=== PATIENT | female | born 1960 | race Two or more races ===

== ENCOUNTER 2017-04-15 07:10 | Day surgery (SDC) | payer BC ==
[~2017-04-15 07:10] MED LIST: CLINDAMYCIN 600 MG/D5W (PMX) 50 ML IVPB; DEXAMETHASONE 4 MG/ML 1 ML INJ; METOCLOPRAMIDE 10 MG INJ; ONDANSETRON 4 MG INJ; PROPOFOL 200 MG INJ; SOD CHLORIDE 0.9% 1,000 ML IV
[2017-04-15] MEDS ORDERED: FENTAnyl 50 MCG/ML VIAL (09:17)
[2017-04-15] MEDS ORDERED: MIDAZOLAM 1 MG/ML 2 ML INJ (09:40)
[2017-04-15] MEDS ORDERED: SUCCINYLCHOLINE CHLORIDE 100 MG/5 ML SYG IV (09:43)
[2017-04-15] MEDS ORDERED: ROCURONIUM 50 MG INJ (09:44)
[2017-04-15] MEDS ORDERED: LIDOCAINE 100 MG SYRINGE (09:44)
[2017-04-15] MEDS ORDERED: CLINDAMYCIN 900 MG/D5W (PMX) 50 ML IVPB (09:55)
[2017-04-15] MEDS: BUPIVACAINE 0.25% (MPF) 30 ML INJ (10:17)
[2017-04-15] MEDS ORDERED: ACETAMINOPHEN 1000MG/100ML IV 100 ML (10:25)
[2017-04-15] MEDS ORDERED: SUGAMMADEX SODIUM 200 MG/2 ML VIAL IV (10:41)
[2017-04-15] MEDS ORDERED: METOCLOPRAMIDE 10 MG INJ IV (11:00)
[2017-04-15] MEDS ORDERED: MEPERIDINE 25 MG INJ IV (11:00)
[2017-04-15] MEDS ORDERED: HYDROmorphONE (0.2 MG/ML) 10ML SYG IV ×2 (11:00)
[2017-04-15] MEDS ORDERED: HALOPERIDOL 5 MG INJ IV (11:00)
[2017-04-15] MEDS ORDERED: DIPHENHYDRAMINE 50 MG INJ IV (11:00)
[2017-04-15] MEDS ORDERED: FENTAnyl 50 MCG/ML VIAL IV (11:00)
[2017-04-15] MEDS: ONDANSETRON 4 MG INJ IV (11:05)
[2017-04-15] MEDS: FENTAnyl 50 MCG/ML VIAL IV ×2 (11:06→11:17)
[2017-04-15] MEDS: KETOROLAC 30 MG INJ IV (11:26)
[2017-04-15] MEDS: HYDROCODONE/APAP (5/325) TAB PO (11:39)
== END 2017-04-15 13:50 | disposition home or self-care (01) ==
LOC: SDS 07:10
DX: K80.10 Calculus of gallbladder with chronic cholecystitis without obstruction (principal)
CPT/HCPCS: 47562; 88304